=== PATIENT | female | born 1980 | race Asian ===

== ENCOUNTER 2024-06-16 22:55 | Emergency (ER) | payer MEDICAID, OTHER ==
[~2024-06-16] VITALS: Ht 157.5 cm; Wt 90.9 kg
[2024-06-16 23:01] VITALS: TEMP 98
[2024-06-17] MEDS: HYDROCODONE/ACETAMINOPHEN 5-325 MG TABLET PO ONE (00:33)
[2024-06-17] MEDS: PERTUSS(ACELL),DIPH,TET/PF 0.5 ML SYRINGE [ADULT] IM. ONE (00:34)
[2024-06-17] MEDS: BACITRACIN 28 GM OINTMENT TP ONE (01:37)
[2024-06-17 01:59] VITALS: BP 141/64; PULSE 82; RESP 15; O2SAT 98
[2024-06-17] MEDS ORDERED: TRAM50TA5 PO (02:03)
[2024-06-17] MEDS ORDERED: CEPH-558 PO (02:03)
== END 2024-06-17 02:23 | disposition home or self-care (01) ==
LOC: EMS 23:00
DX: T23.201A Burn of second degree of right hand, unspecified site, initial encounter (principal); E11.9 Type 2 diabetes mellitus without complications; I10 Essential (primary) hypertension; X12.XXXA Contact with other hot fluids, initial encounter; Y93.89 Activity, other specified; Y92.89 Other specified places as the place of occurrence of the external cause; Y99.8 Other external cause status
CPT/HCPCS: 16020; 82962; 90471; 90715; 99283

== ENCOUNTER 2024-10-04 19:35 | Emergency (ER) | payer OTHER ==
[~2024-10-04] VITALS: Ht 157.5 cm; Wt 90.0 kg
[~2024-10-04 19:35] MED LIST: CEPH-558 PO; TRAM50TA5 PO
[2024-10-04 19:59] VITALS: BP 178/96; PULSE 95; RESP 18; TEMP 97.9; O2SAT 99
== END 2024-10-04 22:30 | disposition left against medical advice (07) ==
LOC: EMS 19:35
DX: R04.0 Epistaxis (principal); Z53.21 Procedure and treatment not carried out due to patient leaving prior to being seen by health care provider